=== PATIENT | female | born 1975 | race African-American/Black ===

== ENCOUNTER 2024-03-29 20:54 | Emergency (ER) | payer SELFPAY ==
[2024-03-29] MEDS ORDERED: PROMETHAZINE 25 MG TABLET ONE (21:22)
[2024-03-29] MEDS ORDERED: TRAMADOL HCL 50 MG TAB ONE (21:23)
[2024-03-29] MEDS ORDERED: IBUPROFEN 400 MG TAB ONE (21:23)
[2024-03-29] MEDS ORDERED: methocarbamoL 750 MG TAB ONE (21:23)
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
[2024-03-30 20:51] VITALS: O2SAT 98
[2024-03-30 20:53] VITALS: BP 150/90; TEMP 97.2
== END 2024-03-29 23:14 | disposition home or self-care (01) ==
LOC: ER 20:54
DX: S13.4XXA Sprain of ligaments of cervical spine, initial encounter (principal); V59.59XA Passenger in pick-up truck or van injured in collision with other motor vehicles in traffic accident, initial encounter
CPT/HCPCS: 70450; 72125; 99284; Q0169